=== PATIENT | female | born 2000 | race Caucasian/White ===

== ENCOUNTER → 2020-08-22 | Emergency (ER) | payer OTHER ==
[~2020-08-22] VITALS: Ht 154.9 cm; Wt 69.4 kg
== END | disposition left against medical advice (07) ==
LOC: ER 20:30
DX: R50.9 Fever, unspecified (principal); Z11.52 Encounter for screening for COVID-19

== ENCOUNTER 2022-04-10 21:44 | Emergency (ER) | payer OTHER ==
[~2022-04-10] VITALS: Ht 162.6 cm; Wt 104.3 kg
[2022-04-10] MEDS ORDERED: SYNTHROID137 MCG PO (21:55)
[2022-04-10] MEDS ORDERED: CALCITRIOL0.5 MCG PO (21:55)
[2022-04-10] MEDS ORDERED: CLONAZEPAM0.5 M1 PO (21:55)
== END 2022-04-11 14:26 | disposition home or self-care (01) ==
LOC: ER 21:44
DX: R10.9 Unspecified abdominal pain (principal); Z88.0 Allergy status to penicillin; N28.1 Cyst of kidney, acquired; R93.89 Abnormal findings on diagnostic imaging of other specified body structures; N20.0 Calculus of kidney

== ENCOUNTER 2022-05-04 01:06 | Emergency (ER) | payer OTHER ==
[~2022-05-04] VITALS: Ht 175.3 cm; Wt 127.5 kg
[~2022-05-04 01:06] MED LIST: CALCITRIOL0.5 MCG PO; CLONAZEPAM0.5 M1 PO; SYNTHROID137 MCG PO
[2022-05-04] MEDS ORDERED: PERCOCET 5-3251 EACH PO (13:28)
== END 2022-05-04 13:40 | disposition home or self-care (01) ==
LOC: ER 01:06
DX: R10.13 Epigastric pain (principal); R10.12 Left upper quadrant pain; R07.9 Chest pain, unspecified; Z88.0 Allergy status to penicillin

== ENCOUNTER → 2022-10-27 09:54 | Outpatient (CLI) | payer OTHER ==
[~2022-10-27 09:54] MED LIST changes: +PERCOCET 5-3251 EACH PO
== END | disposition home or self-care (01) ==
LOC: LAB 09:54
PROVIDERS: ATTEND Internal Medicine Hematology & Oncology
DX: D50.8 Other iron deficiency anemias (principal); R79.9 Abnormal finding of blood chemistry, unspecified; I10 Essential (primary) hypertension; R74.02 Elevation of levels of lactic acid dehydrogenase [LDH]; K76.89 Other specified diseases of liver; D63.8 Anemia in other chronic diseases classified elsewhere; D55.0 Anemia due to glucose-6-phosphate dehydrogenase [G6PD] deficiency; D51.1 Vitamin B12 deficiency anemia due to selective vitamin B12 malabsorption with proteinuria; D51.0 Vitamin B12 deficiency anemia due to intrinsic factor deficiency; E03.8 Other specified hypothyroidism; E06.3 Autoimmune thyroiditis; D68.8 Other specified coagulation defects; E78.2 Mixed hyperlipidemia; D51.3 Other dietary vitamin B12 deficiency anemia; N80.00 Endometriosis of the uterus, unspecified

== ENCOUNTER 2022-11-01 07:55 | Outpatient (CLI) | payer OTHER | END 2022-11-01 08:08 | disposition home or self-care (01) | LOC: RAD 07:55 | PROVIDERS: ATTEND Internal Medicine Hematology & Oncology | DX: Z12.31 Encounter for screening mammogram for malignant neoplasm of breast (principal); N63.0 Unspecified lump in unspecified breast; N64.4 Mastodynia; E04.2 Nontoxic multinodular goiter; R59.0 Localized enlarged lymph nodes; E89.0 Postprocedural hypothyroidism; G44.221 Chronic tension-type headache, intractable; M25.511 Pain in right shoulder; M25.512 Pain in left shoulder | CPT/HCPCS: 70551 ==